=== PATIENT | female | born 1995 | race Two or more races ===

== ENCOUNTER 2023-05-27 21:39 | Emergency (ER) | payer OTHER ==
[~2023-05-27] VITALS: Ht 149.9 cm; Wt 66.7 kg
[2023-05-27 23:37] LABS: HEMATOCRIT 39.6 % (36.0-45.00); HEMOGLOBIN 12.9 g/dL (12.0-15.00); MEAN CELL VOLUME 80.4 fL (80.00-100.00); MEAN CORPUSCULAR HEMOGLOBIN 26.2 pg (27.00-32.0); MEAN CORPUSCULAR HGB CONC 32.6 g/dl (32.0-36.0); PLATELET COUNT 486 K/uL (150-450); RED BLOOD COUNT 4.93 M/uL (4.00-6.00); RED CELL DISTRIBUTION WIDTH 14.4 % (11.5-14.5)
[2023-05-27 23:54] LABS: PH,URINE 6.5 (5.0-8.0); URINE APPEARANCE Cloudy; URINE BILIRRUBIN Negative (NEGATIVE); URINE BLOOD Large; URINE COLOR Yellow; URINE GLUCOSE Negative (NEGATIVE); URINE LEUKOCYTE Large; URINE NITRATE Positive; URINE UROBILINOGEN 0.2 E.U./dl
[2023-05-27 23:57] LABS: URINE EPITHELIAL CELLS 13.2 uL (0.0-38.8); URINE RBC 165.2 uL (0.0-20.8); URINE WBC 1836.4 uL (0.0-23.2)
[2023-05-28 00:01] LABS: CALCIUM 9.2 mg/dL (8.5-10.1); CREATININE SERUM 0.76 mg/dL (0.55-1.02); GFR 89.97; POTASSIUM 3.57 mEq/L (3.5-5.1)
[2023-05-28 00:30] LABS: URINE BACTERIA > 9821.5 uL (0.0-1933); URINE PROTEIN 100 (NEGATIVE)
[2023-05-28] MEDS ORDERED: PYRIDIUM DS200 MG PO ×2 (03:09→03:11)
[2023-05-28] MEDS ORDERED: CIPRO500 MG PO (03:10)
[2023-05-28] MEDS ORDERED: KETO10TA2 PO ×2 (03:10→03:11)
== END 2023-05-28 03:30 ==
LOC: ER 21:40
DX: N39.0 Urinary tract infection, site not specified (principal); R10.2 Pelvic and perineal pain